=== PATIENT | male | born 1980 | race Caucasian/White ===

== ENCOUNTER → 2018-04-14 | Outpatient (CLI) | payer OTHER ==
[~2018-04-14] MED LIST: ALBU8.5H11 INH; ASPI-715 PO; ESOM20CA31 PO; FLUT16SP20 NS; HYDR-653 PO; KET10 PO; LOR5 PO; LORA-633 PO; ONDA4TAB PO; OSE75 PO; PER PO; PRE20 PO
--- NOTE | 2018-04-14 14:55 | RADIOLOGY IMAGING REPORT ---
FACILITY: [facility] PATIENT NAME: Nabor Diaz : 1980 MR: [id number] V: [id number] EXAM DATE: ORDERING PHYSICIAN: ERI BAUTISTA TECHNOLOGIST: Location: [facility] [place] Patient: Nabor Diaz : 1980 Visit/Account:[id number] Date of Sevice: 04/14/2018 EXAMINATION: MRI Brain without intravenous contrast HISTORY: Headache. Dizziness. COMPARISON: None available. TECHNIQUE: Multi-planar, multi-sequence brain MRI was performed without IV contrast administration. FINDINGS: Brain volume: Normal. Sagittal midline structures: Negative. Ventricles: Negative. Acute ischemic changes: None. Hemorrhage: None. Masses / edema: None. Greene-white: Negative. White matter: A few T2/FLAIR hyperintensities in the deep white matter bilaterally. No significant change. Vessels: Negative. Extra-axial: Negative. Calvarium / scalp: Negative. Skull base: Negative. Visualized sinuses / orbits: Moderate mucosal thickening in the paranasal sinuses, most severe in th e ethmoid air cells. Leftward nasal septal deviation. Visualized upper neck: Negative. IMPRESSION: 1. Stable mild chronic white matter disease. The differential diagnosis includes migraine syndromes , demyelinating disease, sequela of prior infection/inflammation/trauma, and chronic microvascular is chemia. 2. No acute intracranial abnormality. 3. Moderate mucosal thickening in the paranasal sinuses, most severe in the ethmoid air cells. Left orozco nasal septal deviation. Report Dictated By: Calderon Leblanc MD at 04/14/2018 2:46 PM Report E-Signed By: Calderon Leblanc MD at 04/14/2018 2:50 PM WSN:[id number]
== END ==
LOC: MRI 00:39
PROVIDERS: ATTEND Physician Assistant Medical
DX: R90.82 White matter disease, unspecified (principal); J34.2 Deviated nasal septum; J32.2 Chronic ethmoidal sinusitis; J01.80 Other acute sinusitis
CPT/HCPCS: 70551